=== PATIENT | female | born 1965 | race Caucasian/White ===

== ENCOUNTER 2017-04-02 13:22 | Emergency (ER) | payer BC ==
[2017-04-02 13:32] VITALS: TEMP 98
[2017-04-02] MEDS ORDERED: IPRATROPIUM/ALBUTEROL 3 ML DEYVIAL IH ONE (13:36)
--- NOTE | 2017-04-02 13:38 | EDPHY ---
H & P Stated Complaint: finished z-pack yesterday for 10 day URI- c/o inc prod cough Time Seen by Provider: 04/02/17 13:34 HPI/ROS: CHIEF COMPLAINT: Cough HISTORY OF PRESENT ILLNESS: Patient is a 51-year-old female who comes to the emergency department complaining of a cough and low-grade fever up to 100 for the last 10 days. She finished a 5 day course of Z-Kev yesterday. She does not feel any better. She does not have any history of COPD or asthma. She is not a smoker. She states that her cough is productive for yellow sputum. No chest pain. No abdominal pain, nausea vomiting or diarrhea. She did get a flu vaccine this year. No sinus congestion or sore throat. REVIEW OF SYSTEMS: Constitutional: denies: chills, fever, recent illness, recent injury EENTM: denies: blurred vision, double vision, nose congestion Respiratory: See HPI Cardiac: denies: chest pain, irregular heart rate, lightheadedness, palpitations Gastrointestinal/Abdominal: denies: abdominal pain, diarrhea, nausea, vomiting, blood streaked stools Genitourinary: denies: dysuria, frequency, hematuria, pain Musculoskeletal: denies: joint pain, muscle pain Skin: denies: lesions, rash, jaundice, bruising Neurological: denies: headache, numbness, paresthesia, tingling, dizziness, weakness Hematologic/Lymphatic: denies: blood clots, easy bleeding, easy bruising Immunologic/allergic: denies: HIV/AIDS, transplant EXAM: GENERAL: Well-appearing, well-nourished and in no acute distress. HEAD: Atraumatic, normocephalic. EYES: Pupils equal round and reactive to light, extraocular movements intact, sclera anicteric, conjunctiva are normal. ENT: TMs normal, nares patent, oropharynx clear without exudates. Moist mucous membranes. NECK: Normal range of motion, supple without lymphadenopathy or JVD. LUNGS: Breath sounds clear to auscultation bilaterally and equal. No wheezes rales or rhonchi. HEART: Regular rate and rhythm without murmurs, rubs or gallops. ABDOMEN: Soft, nontender, normoactive bowel sounds. No guarding, no rebound. No masses appreciated. BACK: No CVA tenderness, no spinal tenderness, step-offs or deformities EXTREMITIES: Normal range of motion, no pitting or edema. No clubbing or cyanosis. NEUROLOGICAL: Cranial nerves II through XII grossly intact. Normal speech, normal gait. 5/5 strength, normal movement in all extremities, normal sensation PSYCH: Normal mood, normal affect. SKIN: Warm, dry, normal turgor, no visible rashes or lesions. Source: Patient Exam Limitations: No limitations - Personal History LMP (Females 10-55): Post Menopausal Current Tetanus Diphtheria and Acellular Pertussis (TDAP): Yes - Medical/Surgical History Hx Asthma: No Hx Chronic Respiratory Disease: No Hx Diabetes: No Hx Cardiac Disease: No Hx Renal Disease: No Hx Cirrhosis: No Hx Alcoholism: No Hx HIV/AIDS: No Hx Splenectomy or Spleen Trauma: No Other PMH: Alcoholism - Family History Significant Family History: No pertinent family hx - Social History Smoking Status: Unknown if ever smoked Alcohol Use: Heavy Drug Use: None Constitutional: Initial Vital Signs Temperature (C) 36.6 C 04/02/17 13:30 Heart Rate 104 H 04/02/17 13:30 Respiratory Rate 20 04/02/17 13:30 Blood Pressure 175/113 H 04/02/17 13:30 O2 Sat (%) 93 04/02/17 13:30 O2 Delivery Mode Room Air Allergies/Adverse Reactions: penicillin V Allergy (Verified 02/07/14 22:15) Home Medications: Medication Instructions Recorded Levothyroxine 02/07/14 Medical Decision Making - Diagnostics Imaging Results: Imaging Impressions Chest X-Ray 04/02/17 13:36 Impression: Minimal bronchitis. No other findings for acute cardiopulmonary abnormality. Imaging: Discussed imaging studies w/ on call pharmacy technician Radiologist ED Course/Re-evaluation: 2:00 p.m. we discussed the x-ray results. The patient is reassured. She is asking for a note to go back to work. She states that the DuoNeb did not make much difference. I advised hydration and rest. If she does go back to work she will wear a mask motion hands frequently. Differential Diagnosis: Partial list of the Differential diagnosis considered include but were not limited to; bronchitis, pneumonia, upper respiratory tract infection and although unlikely based on the history and physical exam, I also considered sepsis, abscess endocarditis. I discussed these differential diagnoses and the plan with the patient as well as the usual and expected course. The patient understands that the diagnosis is provisional and that in medicine we are not always correct and that further workup is often warranted. Usual and customary warnings were given. All of the patient's questions were answered. The patient was instructed to return to the emergency department should the symptoms at all worsen or return, otherwise to followup with the physician as we discussed. - Data Points Medications Given: Discontinued Medications Albuterol/Ipratropium (Duoneb) 3 ml IH EDNOW ONE Stop: 04/02/17 13:37 Last Admin: 04/02/17 13:45 Dose: 3 ml Departure - Departure Disposition: Home, Routine, Self-Care Clinical Impression: Bronchitis Condition: Fair Instructions: Acute Bronchitis (ED) Referrals: Deborah Curry MD [Primary Care Provider] - As per Instructions Stand Alone Forms: Work Excuse
[2017-04-02 14:09] VITALS: BP 165/88; PULSE 87; RESP 18; O2SAT 95
== END 2017-04-02 14:08 | disposition home or self-care (01) ==
LOC: CED 13:22
DX: J40 Bronchitis, not specified as acute or chronic (principal)
CPT/HCPCS: 71046-PO

== ENCOUNTER → 2017-12-16 | Outpatient (CLI) | payer BC | LOC: CIMAGING 16:41 | PROVIDERS: ATTEND Family Medicine | DX: R30.0 Dysuria (principal); M54.5 Low back pain | CPT/HCPCS: 74018-PO ==